=== PATIENT | female | born 1990 ===

== ENCOUNTER 2021-09-24 21:16 | Emergency (ER) | payer BC ==
[2021-09-24] MEDS ORDERED: Amoxicillin/Clavulanate K 875-125 MG Tab ONE (21:30)
== END 2021-09-24 21:42 | disposition home or self-care (01) ==
LOC: LB.ED 21:16
DX: S61.051A Open bite of right thumb without damage to nail, initial encounter (principal); W55.01XA Bitten by cat, initial encounter
CPT/HCPCS: 99283; A9270; 99281